=== PATIENT | male | born 1955 | race Caucasian/White ===

== ENCOUNTER 2016-11-04 14:56 | Inpatient (IN) ==
[2016-11-04] MEDS ORDERED: 0.9 % Sodium Chloride 1,000 ML IV SCH (16:15)
--- NOTE | 2016-11-04 16:17 | Emergency Department Note ---
Disposition Clinical Impression: Elevated troponin I level, Community acquired bacterial pneumonia, Renal calculus, left, Hyponatremia, Hyperkalemia Disposition: Admitted As Inpatient Condition: Fair Time of Disposition: 21:21 General Adult HPI - General Chief complaint: ED Fever Stated complaint: Fever/Dark Urine/Back Pain Time Seen by Provider: 11/04/16 15:44 Source: patient Limitations: no limitations Nursing Notes Reviewed: Yes Vital Signs Reviewed: Yes - History of Present Illness HPI Narrative: Mr. Ruiz, is a 61 y M c/o dark urine x 2 wks. Pt states he started having black urine 2weeks ago and was seen by Dr. Rodriguez and placed on antibiotics without a u/a. 1 week into treatment his urine color started to improve but then started getting dark again. Pt states that 3 days ago he started having left flank pain. 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 Pain Scale: 5 - Related Data Home Medications Medication Instructions Recorded Confirmed Albuterol Neb [Proventil Neb] 2.5 mg IH Q4HR 09/09/16 11/04/16 Albuterol Sulfate [Ventolin Hfa] 1 puff IH QID PRN 09/09/16 11/04/16 Baclofen [Baclofen] 20 mg PO TID PRN 09/09/16 11/04/16 CarBAMazepine [Tegretol Xr] 400 mg PO BID 09/09/16 11/04/16 Diazepam [Valium] 10 mg PO TID 09/09/16 11/04/16 Diclofenac Sodium [Voltaren] 1 gm TP TID 09/09/16 11/04/16 Docusate [Colace] 100 mg PO BID 09/09/16 11/04/16 Ipratropium/Albuterol Neb [Duoneb] 3 ml IH TID PRN 09/09/16 11/04/16 Lactose-Reduced Food [Ensure 1 bottle PO TID 09/09/16 11/04/16 Liquid] OxyCODONE/APAP 10/325 [Percocet 1 tab PO Q6HR PRN 09/09/16 11/04/16 10/325 MG] Theophylline Anhydrous [Martin-24] 200 mg PO DAILY 09/09/16 11/04/16 Zonisamide [Zonegran] 200 mg PO BID 09/09/16 11/04/16 Allergies Allergy/AdvReac Type Severity Reaction Status Date / Time No Known Allergies Allergy Unverified 11/04/16 15:06 All systems ED: reviewed and negative except as stated. Constitutional: Reports: fever, chills, weakness ENT ED: Reports: congestion Cardiovascular: Denies: chest pain, palpitations Respiratory: Reports: cough, wheezes Gastrointestinal: Denies: abdominal pain Musculoskeletal: Denies: back pain, neck pain Neurological: Denies: headache Past Medical History - Past Medical History Attestation: Yes The following information was validated with the patient. Source: patient Medical history: Reports: asthma Psychiatric history: Reports: no psych history - Social History Smoking Status: Current every day smoker Smokeless Tobacco Status: No Alcohol use: Reports: heavy Drug use: Reports: marijuana Physical Exam Vital Signs Temperature 98.8 F 11/04/16 15:03 Pulse Rate 97 11/04/16 15:03 Respiratory Rate 16 11/04/16 15:03 Blood Pressure 113/66 11/04/16 15:03 O2 Sat by Pulse Oximetry 96 11/04/16 15:03 Temperature 98.8 F 11/04/16 15:03 Pulse Rate 97 11/04/16 15:03 Respiratory Rate 16 11/04/16 15:03 Blood Pressure 113/66 11/04/16 15:03 O2 Sat by Pulse Oximetry 96 11/04/16 15:03 Oxygen Delivery Oxygen Delivery Room Air -General Appearance: Patient is a 61-year-old male who is alert and oriented 3 and in no acute distress. Patient appears very frail and cachectic - Head Head exam: atraumatic, normocephalic, normal inspection - Eye Eye exam: Present: normal appearance, PERRL, EOMI, negative for scleral icterus negative for conjunctival pallor - ENT ENT exam: normal exam, normal oropharynx, mucous membranes moist - Neck Neck exam: Present: normal inspection, full ROM, trachea midline, negative JVD - Chest Chest inspection: Present: Patient has bilateral equal rise and fall of chest wall. Non-tender to palpation. - Respiratory Respiratory exam: Rhonchi and wheezes auscultated in bilaterally lung collado. Cardiovascular Cardiovascular exam: Present: regular rate, normal rhythm, normal heart sounds, without murmurs rubs or gallops. - Abdominal Exam Abdominal exam: Present: soft, nondistended, Non-Tender light and deep palpation in all quadrants. Bowel sounds normoactive throughout all 4 quadrants. Negative for hyper or hyperresonance. - Extremities Exam Extremities exam: Present: normal inspection, full ROM, pulses equal in bilateral upper and lower extremities. - Back Exam Back exam: Present: normal inspection, full ROM. Absent: tenderness, CVA tenderness (R), CVA tenderness (L), no flank tenderness - Psychiatric Psychiatric exam: Present: normal affect, normal mood - Skin Skin exam: Present: warm, dry, intact, normal color - General Limitations: no limitations General appearance: alert, in no apparent distress Course Course Narrative: pt was seen a and examined. cbc, bmp, lft, - Reevaluation(s) Reevaluation #1: Pt doing well with no complaints. Time: 16:30 Reevaluation #2: Pt returned from ct and is having labs drawn. Time: 16:55 Reevaluation #3: Pt complains that room is cold. waiting for pt to produce urine, but refuses straight cath. Time: 17:30 Additional Reevaluation(s): 1744 Pt still has not urinated. 1819 no urine, refuse straight cath. Patient eating dinner. 1956 pt agrees to straight cath. urine collected and sent. - Consultations Consultation #1: Dr. Metz accepted for admission at 2118hrs Time: 21:19 Vital Signs Temperature 98.8 F 11/04/16 15:03 Pulse Rate 97 11/04/16 15:03 Respiratory Rate 16 11/04/16 15:03 Blood Pressure 113/66 11/04/16 15:03 O2 Sat by Pulse Oximetry 96 11/04/16 15:03 Temperature 0 F L 11/04/16 22:40 Pulse Rate 91 11/04/16 21:37 Respiratory Rate 0 11/04/16 22:40 Blood Pressure 0/0 11/04/16 22:40 O2 Sat by Pulse Oximetry 98 11/04/16 21:37 Oxygen Delivery Oxygen Delivery Room Air Medical Decision Making - MDM Narrative Medical decision making narrative: Mr. Ruiz, is a 61 y M c/o dark urine x 2 wks. Pt states he started having black urine 2weeks ago and was seen by Dr. Rodriguez and placed on antibiotics without a u/a. 1 week into treatment his urine color started to improve but then started getting dark again. Pt states that 3 days ago he started having left flank pain. On exam he has bilateral rhonchi and wheezing of the lungs but no flank pain, or abdominal pain. Pulses are equal bilat. He also has been losing weight and appears cachectic. His presentation is concerning for Nephrolithiasis, complicated UTI, neoplasm, pneumonia, bronchitis. I examined this patient and my medical decision-making was reviewed with the [employer]/PA/Advanced Practice Nurse/Resident Physician. I agree with the documented findings, disposition and treatment plan as described except to the extent set forth below. Patient was seen by Dr. Colbert and myself, please see his evaluation I agree with his management plan I supervised the care of the patient stay. Patient came in today with some flank pain that was on the left side. It has resolved. Said some decubitus ulcers on his buttocks. Which is being treated currently he denies any difficulty urinating now caesuras been very dark in color he denies any other fevers at this point does have some cough. History of alcoholism and CVA in the past. Getting lab workup checking urinalysis and CT of his abdomen and reassess. He is in agreement with this plan. Chest X-Ray 11/04/16 16:05 IMPRESSION: New airspace disease in the left lung base compatible with pneumonia D/ / Rayo Medina MD / Rayo Medina MD Interpreting Provider: Rayo Medina MD Abdomen/Pelvis CT 11/04/16 16:13 IMPRESSION: Masslike consolidation within the left lower lobe with surrounding infiltrates and a loculated pleural effusion. Radiopaque densities within the left lower lobe may reflect calcifications versus aspirates. Mild bladder wall thickening and tiny bladder stone. Nonobstructing left renal calculus. Potential mass within the sigmoid colon versus stool. Cholelithiasis. D/ / Manoj Whiteside MD / Manoj Whiteside MD Interpreting Provider: Manoj Whiteside MD 1930 hrs.: Treating him with antibiotics for presumed pneumonia. Cultures are added will bring him into the hospital. Also elevated troponin with no chest pain. 2049 hrs.: Patient's urine is essentially negative it is dark yellow here his May been due to dehydration is the dark colored ahead at home. With his possible mass is also airspace disease consistent with pneumonia were bring him in the hospital cyanosis positive troponin. He is in agreement with plan. Cultures done patient had aspirin and he had IV antibiotics started. He is in agreement with this plan. Dr. Metz accepted for admission at 2117hrs - Medical Records Medical records reviewed: Yes I reviewed the patient's medical records. - Lab Data Lab results reviewed: Yes I reviewed the patient's lab results. Lab results narrative: Short CBC 11/04/16 Range/Units 16:21 WBC 8.0 (4.3-11.1) K/mcL Hgb 11.7 L (12.9-16.9) g/dL Hct 36.9 L (37.5-50.1) % Plt Count 465 H (140-400) K/mcL Neutrophils # 5.7 (1.6-8.9) K/mcL BMP 11/04/16 Range/Units 16:21 Sodium 135 L (136-145) mEq/L Potassium 4.6 H (3.5-4.5) mEq/L Chloride 99 (98-109) mEq/L Carbon Dioxide 28 (19-29) mEq/L BUN 11 (8-26) mg/dL Creatinine 0.56 L (0.72-1.25) mg/dL Glucose 92 (70-99) mg/dL Calcium 9.0 (8.6-10.8) mg/dL Cardiac Enzymes 11/04/16 Range/Units 16:21 Troponin I 0.09 H* (0-0.03) ng/mL Liver Function 11/04/16 Range/Units 16:21 Total Bilirubin 0.2 (0.2-1.2) mg/dL AST 15 (5-34) Units/L ALT 12 (0-55) Units/L Alkaline Phosphatase 159 H (38-126) Units/L Albumin 2.2 L (3.5-5.0) g/dL Result diagrams: 11/04/16 16:21 11/04/16 16:21 Lab Results 02/05/1311/04/16 11/04/16 Range/Units 16:21 16:21 16:21 WBC 8.0 (4.3-11.1) K/mcL RBC 3.87 L (4.19-5.50) M/mcL Hgb 11.7 L (12.9-16.9) g/dL Hct 36.9 L (37.5-50.1) % MCV 95.3 (83.0-100.0) fL MCH 30.2 (28.0-33.3) pg MCHC 31.7 (31.6-35.5) g/dL RDW 13.7 (11.5-14.5) % Plt Count 465 H (140-400) K/mcL MPV 8.3 L (9.4-12.4) fL Immature Gran % 0.4 (0-4) % Seg Neutrophils % 70.2 % Lymphocytes % 18.3 % Monocytes % 8.5 % Eosinophils % 2.0 % Basophils % 0.6 % Neutrophils # 5.7 (1.6-8.9) K/mcL Lymphocytes # 1.5 (0.6-4.6) K/mcL Monocytes # 0.7 (0.0-1.3) K/mcL Eosinophils # 0.2 (0.0-0.6) K/mcL Basophils # 0.1 (0.0-0.2) K/mcL Sodium 135 L (136-145) mEq/L Potassium 4.6 H (3.5-4.5) mEq/L Chloride 99 (98-109) mEq/L Carbon Dioxide 28 (19-29) mEq/L BUN 11 (8-26) mg/dL Creatinine 0.56 L (0.72-1.25) mg/dL Est GFR ( Amer) > 60 (> 60) Est GFR (Non-Af Amer) > 60 (> 60) BUN/Creatinine Ratio 20 (6-26) Glucose 92 (70-99) mg/dL Calculated Osmolality 279 L (280-300) Calcium 9.0 (8.6-10.8) mg/dL Total Bilirubin 0.2 (0.2-1.2) mg/dL AST 15 (5-34) Units/L ALT 12 (0-55) Units/L Alkaline Phosphatase 159 H (38-126) Units/L Creatine Kinase (30-200) Units/L Troponin I 0.09 H* (0-0.03) ng/mL Serum Total Protein 6.9 (6.0-8.3) g/dL Albumin 2.2 L (3.5-5.0) g/dL Globulin 4.7 H (2.4-3.5) g/dL Albumin/Globulin Ratio 0.5 L (1.1-2.2) Urine Color (Yellow) Urine Clarity (Clear) Urine pH (5.0-8.0) pH Units Ur Specific [place] (1.010-1.025) Urine Protein (Neg-Trace) mg/dL Urine Glucose (UA) (Normal) mg/dL Urine Ketones (Negative) mg/dL Urine Blood (Negative) Urine Nitrite (Negative) Urine Bilirubin (Negative) Urine Urobilinogen (Normal) mg/dL Ur Leukocyte Esterase (Negative) Urine Microscopic RBC (0-3) per hpf Urine Microscopic WBC (0-3) per hpf Ur Squamous Epith Cells (None-Few) per lpf Urine Bacteria (None-Few) per hpf Hyaline Casts (None-Few) per lpf 11/04/16 11/04/16 Range/Units 16:21 20:33 WBC (4.3-11.1) K/mcL RBC (4.19-5.50) M/mcL Hgb (12.9-16.9) g/dL Hct (37.5-50.1) % MCV (83.0-100.0) fL MCH (28.0-33.3) pg MCHC (31.6-35.5) g/dL RDW (11.5-14.5) % Plt Count (140-400) K/mcL MPV (9.4-12.4) fL Immature Gran % (0-4) % Seg Neutrophils % % Lymphocytes % % Monocytes % % Eosinophils % % Basophils % % Neutrophils # (1.6-8.9) K/mcL Lymphocytes # (0.6-4.6) K/mcL Monocytes # (0.0-1.3) K/mcL Eosinophils # (0.0-0.6) K/mcL Basophils # (0.0-0.2) K/mcL Sodium (136-145) mEq/L Potassium (3.5-4.5) mEq/L Chloride (98-109) mEq/L Carbon Dioxide (19-29) mEq/L BUN (8-26) mg/dL Creatinine (0.72-1.25) mg/dL Est GFR ( Amer) (> 60) Est GFR (Non-Af Amer) (> 60) BUN/Creatinine Ratio (6-26) Glucose (70-99) mg/dL Calculated Osmolality (280-300) Calcium (8.6-10.8) mg/dL Total Bilirubin (0.2-1.2) mg/dL AST (5-34) Units/L ALT (0-55) Units/L Alkaline Phosphatase (38-126) Units/L Creatine Kinase 16 L (30-200) Units/L Troponin I (0-0.03) ng/mL Serum Total Protein (6.0-8.3) g/dL Albumin (3.5-5.0) g/dL Globulin (2.4-3.5) g/dL Albumin/Globulin Ratio (1.1-2.2) Urine Color Dark Yellow (Yellow) Urine Clarity Clear (Clear) Urine pH 6.5 (5.0-8.0) pH Units Ur Specific [place] 1.024 (1.010-1.025) Urine Protein Trace (Neg-Trace) mg/dL Urine Glucose (UA) Normal (Normal) mg/dL Urine Ketones Negative (Negative) mg/dL Urine Blood Negative (Negative) Urine Nitrite Negative (Negative) Urine Bilirubin Small H (Negative) Urine Urobilinogen Normal (Normal) mg/dL Ur Leukocyte Esterase Negative (Negative) Urine Microscopic RBC 0-3 (0-3) per hpf Urine Microscopic WBC 0-3 (0-3) per hpf Ur Squamous Epith Cells Moderate H (None-Few) per lpf Urine Bacteria None Seen (None-Few) per hpf Hyaline Casts None Seen (None-Few) per lpf - Radiology Data Radiology results reviewed: Yes I reviewed the patient's radiology results. Chest X-Ray 11/04/16 16:05 IMPRESSION: New airspace disease in the left lung base compatible with pneumonia D/ / Rayo Medina MD / Rayo Medina MD Interpreting Provider: Rayo Medina MD Abdomen/Pelvis CT 11/04/16 16:13 IMPRESSION: Masslike consolidation within the left lower lobe with surrounding infiltrates and a loculated pleural effusion. Radiopaque densities within the left lower lobe may reflect calcifications versus aspirates. Mild bladder wall thickening and tiny bladder stone. Nonobstructing left renal calculus. Potential mass within the sigmoid colon versus stool. Cholelithiasis. D/ / Manoj Whiteside MD / Manoj Whiteside MD Interpreting Provider: Manoj Whiteside MD - EKG Data EKG #1 EKG attestation: Yes I reviewed and interpreted this EKG. EKG results narrative: EKG taken 11/04/2016 at 1724 hrs. shows a sinus rhythm with ventricular rate of 80 bpm underlying artifact baseline with no signs of ischemia and he leads P T waves in V2 and V3 which are shown previous EKG taken 09/09/2016 which almost looks identical in morphology
[2016-11-04 16:44] LABS: Basophils # 0.1 K/mcL (0.0-0.2); Basophils % 0.6 %; Eosinophils # 0.2 K/mcL (0.0-0.6); Hematocrit 36.9 % (37.5-50.1); Hemoglobin 11.7 g/dL (12.9-16.9); Immature Granulocytes % 0.4 % (0-4); Lymphocytes # 1.5 K/mcL (0.6-4.6); Lymphocytes % 18.3 %; Mean Corpuscular HGB Conc 31.7 g/dL (31.6-35.5); Mean Corpuscular Hemoglobin 30.2 pg (28.0-33.3); Mean Corpuscular Volume 95.3 fL (83.0-100.0); Mean Platelet Volume 8.3 fL (9.4-12.4); Monocytes # 0.7 K/mcL (0.0-1.3); Monocytes % 8.5 %; Neutrophils # 5.7 K/mcL (1.6-8.9); Platelet Count 465 K/mcL (140-400); Red Blood Count 3.87 M/mcL (4.19-5.50); Red Cell Distribution Width 13.7 % (11.5-14.5); Segmented Neutrophils % 70.2 %
[2016-11-04 16:54] LABS: Alanine Aminotransferase 12 Units/L (0-55); Albumin 2.2 g/dL (3.5-5.0); Albumin/Globulin Ratio 0.5 (1.1-2.2); Alkaline Phosphatase 159 Units/L (38-126); Aspartate Amino Transferase 15 Units/L (5-34); BUN/Creatinine Ratio 20 (6-26); Bilirubin,Total 0.2 mg/dL (0.2-1.2); Blood Urea Nitrogen 11 mg/dL (8-26); Carbon Dioxide 28 mEq/L (19-29); Chloride 99 mEq/L (98-109); Globulin 4.7 g/dL (2.4-3.5); Glucose 92 mg/dL (70-99); Osmolality,Calculated 279 (280-300); Potassium 4.6 mEq/L (3.5-4.5); Sodium 135 mEq/L (136-145); Total Protein 6.9 g/dL (6.0-8.3); eGFR For African Americans > 60 (> 60); eGFR For Non-African Americans > 60 (> 60)
[2016-11-04] MEDS ORDERED: Aspirin 81 MG TAB.CHEW PO ONE (18:19)
[2016-11-04] MEDS ORDERED: Levofloxacin 750 MG/150 ML 750 MG/150 ML BAG IVPB ONE (19:26)
[2016-11-04 20:44] LABS: Bilirubin,Urine Small (Negative); Blood,Urine Negative (Negative); Clarity,Urine Clear (Clear); Color,Urine Dark Yellow (Yellow); Glucose,Urine (UA) Normal (Normal); Ketones,Urine Negative (Negative); Leukocyte Esterase,Urine Negative (Negative); Nitrite,Urine Negative (Negative); PH,Urine 6.5 pH Units (5.0-8.0); Protein,Urine Trace mg/dL (Neg-Trace); Specific Gravity,Urine 1.024 (1.010-1.025); Urobilinogen,Urine Normal (Normal)
[2016-11-04 20:47] LABS: Bacteria,Urine None Seen per hpf (None-Few); Hyaline Casts,Urine None Seen per lpf (None-Few); RBC,Urine 0-3 per hpf (0-3); Squamous Epithelial Cell,Urine Moderate per lpf (None-Few); WBC,Urine 0-3 per hpf (0-3)
[2016-11-04] MEDS ORDERED: 0.9 % Sodium Chloride 1,000 ML IVC ONE (22:47)
--- NOTE | 2016-11-04 22:52 | Internal Med History&Physical ---
Date of Encounter: 11/04/16 Time of Encounter: 22:48 Assessment and Plan (1) Colonic mass Current visit: Yes Status: Acute Patient never had a colonoscopy advised him that he will need a colonoscopy shortly after discharge to rule out possible deal malignancy. Will check CEA level (2) Community acquired bacterial pneumonia Current visit: Yes Status: Acute Levaquin sputum and blood cultures. Patient will need to repeat imaging (lungs when sure resolution of this infiltrates resistance of mass will need to be investigated for malignancy. He is a lifelong smoker with history of weight loss and declining appetites and functional decline (3) Elevated troponin I level Current visit: Yes Status: Acute He denies any active chest pain. His electrocardiogram shows no ST segment shifts. Will trend troponin. Start the patient on aspirin. Cardiology consultation. Will also check echocardiogram and thyroid profile (4) Renal calculus, left Current visit: Yes Status: Acute This was likely to cause the left flank pain. His document is probably related to dehydration. There is no blood in the urine. Also no evidence of rhabdomyolysis. No obstructive uropathy. Urine is non infected (5) Stroke Current visit: Yes Status: Acute History of stroke with residual left-sided weakness. No new focal deficit Qualifiers: Qualified Code(s): I63.9 - Cerebral infarction, unspecified Internal Medicine - H&P: HPI Chief complaint: dark urine and left flank pain History of present illness: Mr. Ruiz is a 61 year old male with history of left sided any pleasing ambulates with a cane, history of asthma since childhood was a lifelong smoker presents to the emergency room today with the main complain of dark urine and left flank pain. The past week patient has been noticing dark color overlays urine and pain in his left flank. His appetite has been declining and he has not been eating and drinking well past few weeks. He has seen his primary care physician and was started on an antibiotic for presumed urinary tract infection which he does not recall the name of for the past 4 days. It continues to get progressively weak lethargic with poor appetite and therefore his home care nurse advised to the hospital. Patient has been losing weight. He thinks over the past 2 to 3 months he may have lost about 25 to 30 pounds. He is also getting weaker and his functional capacities declining. He denies any increase in cough or sputum production compared to his baseline. He denies any fevers chills. Denies any change in the color of his stools or eye. He denies any chest pain. Has been a lifelong smoker about 50 pack year does not have an appetite is currently. Occasional alcohol. Father of cancer he does not know where origin is Past Med Surg Social Fam HX - Past Medical History Medical history: asthma Psychiatric history: no psych history - Social History Smoking Status: Current every day smoker Smokeless Tobacco Status: No Alcohol use: heavy Drug use: marijuana Internal Medicine - H&P: Meds Albuterol Neb [Proventil Neb] 2.5 mg IH Q4HR 09/09/16 [History] Albuterol Sulfate [Ventolin Hfa] 1 puff IH QID PRN 09/09/16 [History] Baclofen [Baclofen] 20 mg PO TID PRN 09/09/16 [History] CarBAMazepine [Tegretol Xr] 400 mg PO BID 09/09/16 [History] Diazepam [Valium] 10 mg PO TID 09/09/16 [History] Diclofenac Sodium [Voltaren] 1 gm TP TID 09/09/16 [History] Docusate [Colace] 100 mg PO BID 09/09/16 [History] Ipratropium/Albuterol Neb [Duoneb] 3 ml IH TID PRN 09/09/16 [History] Lactose-Reduced Food [Ensure Liquid] 1 bottle PO TID 09/09/16 [History] OxyCODONE/APAP 10/325 [Percocet 10/325 MG] 1 tab PO Q6HR PRN 09/09/16 [History] Theophylline Anhydrous [Martin-24] 200 mg PO DAILY 09/09/16 [History] Zonisamide [Zonegran] 200 mg PO BID 09/09/16 [History] Allergies No Known Allergies Allergy (Unverified 11/04/16 15:06) All Systems PM: A 10-system review of systems was performed and is negative for pertinent findings except as documented above in the HPI. Review of systems: 10 point review of systems is negative except for HPI - Constitutional Vitals: Temp Pulse Resp BP Pulse Ox 98.8 F 91 16 108/73 98 11/04/16 15:03 11/04/16 21:37 11/04/16 21:37 11/04/16 21:37 11/04/16 21:37 Exam: Gen.: patient is alert oriented times 3 kn of distress. slightly cachectic cardiac: normal S1 S2 no additional sounds or murmurs chest: diminished air entry in the left base abdomen: soft nontender nondistended normal bowel sounds lower extremity: Lax calf muscles no swelling Internal Med - H&P Results - Labs CBC & Chem 7: 11/04/16 16:21 11/04/16 16:21
[2016-11-05] MEDS: Albuterol 2.5 MG/3 ML NEBULIZER IH SCH ×4 (00:51→11:47)
[2016-11-05] MEDS: 0.9 % Sodium Chloride 1,000 ML IVC SCH ×2 (03:00→14:56)
[2016-11-05] MEDS: *HR* OxyCODONE/APAP 10/325 TABLET PO PRN ×3 (03:17→18:44)
[2016-11-05 06:23] LABS: Basophils % 0.3 %; Eosinophils # 0.1 K/mcL (0.0-0.6); Eosinophils % 1.2 %; Hematocrit 33.3 % (37.5-50.1); Hemoglobin 10.6 g/dL (12.9-16.9); Immature Granulocytes % 0.3 % (0-4); Lymphocytes # 1.5 K/mcL (0.6-4.6); Lymphocytes % 25.2 %; Mean Corpuscular HGB Conc 31.8 g/dL (31.6-35.5); Mean Corpuscular Hemoglobin 30.2 pg (28.0-33.3); Mean Corpuscular Volume 94.9 fL (83.0-100.0); Mean Platelet Volume 8.3 fL (9.4-12.4); Monocytes # 0.5 K/mcL (0.0-1.3); Monocytes % 7.6 %; Neutrophils # 3.9 K/mcL (1.6-8.9); Platelet Count 390 K/mcL (140-400); Red Blood Count 3.51 M/mcL (4.19-5.50); Red Cell Distribution Width 13.7 % (11.5-14.5); Segmented Neutrophils % 65.4 %
[2016-11-05 06:45] LABS: BUN/Creatinine Ratio 18 (6-26); Blood Urea Nitrogen 9 mg/dL (8-26); Calcium 8.2 mg/dL (8.6-10.8); Carbon Dioxide 23 mEq/L (19-29); Chloride 100 mEq/L (98-109); Creatine Kinase 12 Units/L (30-200); Glucose 99 mg/dL (70-99); Magnesium 1.3 mg/dL (1.6-2.6); Osmolality,Calculated 273 (280-300); Sodium 132 mEq/L (136-145); eGFR For African Americans > 60 (> 60); eGFR For Non-African Americans > 60 (> 60)
[2016-11-05 06:56] LABS: Thyroid Stimulating Hormone 1.815 mcIU/mL (0.350-4.840)
[2016-11-05 06:58] LABS: C-Reactive Protein 44 mg/L (Less than 5)
[2016-11-05 07:20] LABS: Carcinoembryonic Antigen 2.8 ng/mL (0-5.0)
--- NOTE | 2016-11-05 08:39 | Cardiology Consult Note ---
Date of Encounter: 11/05/16 Time of Encounter: 08:15 Assessment and Plan (1) Elevated troponin I level Current Visit: Yes Status: Acute Per cardiology: -Elevated troponin of 0.08, 0.09 in the setting of pneumonia and recent UTI. Patient denies chest pain, increased shortness of breath, or edema. -Patient with a history of CVA with left sided hemiparesis. Patient with new diagnosis of colon mass and recent weight loss of 30 pounds. Patient is apparently going to be worked up for further malignant testing on colon mass. -Patient currently on asa and statin. Patient currently receiving antibiotics and nebulizer treatments for pneumonia and UTI. -Magnesium 1.3 -ECG personally reviewed and noted to be normal sinus rhythm with heart rate of 73 beats/minute. -No further ischemic work up warranted at this time as mildly elevated troponin is likely due to demand ischemia. -Will add lopressor 12.5mg PO BID. Will decrease aspirin to 81mg PO daily. -Magnesium replacement per primary service. -Recommend medical management. -Cardiology will sign off. Re-consult if needed. Thank you. Discussion w patient/family: The assessment and plan as outlined above was discussed with the patient who expressed understanding and agreement. All questions were answered. Thank you for involving us in the care of your patient. Please call with any questions. Discussed and reviewed with Dr.John Blackwood. History of Present Illness Consult date: 11/05/16 Requesting physician: Nigel Nguyen Consult reason: elevated troponin Chief complaint: chills, dark urine History of present illness: Mr. Ruiz is a 61 year old male who presented to [place] with complaints of fever, chills, and dark urine. Patient states he was on antibiotics recently for a UTI that was prescribed by his PCP. Patient states he urine before antibiotics was dark and then became better on antibiotics. Patient states as soon as first round of antibiotics was finished, dark urine returned. Patient states urine is "black" in color. Patient complains of fever, chills, diarrhea, increased fatigue, weight loss, and increased weakness. Patient denies chest pain, increased shortness of breath, or edema. Past Med Surg Social Fam HX - Past Medical History Medical history: asthma, CVA, seizures Psychiatric history: no psych history - Social History Smoking Status: Current every day smoker Smokeless Tobacco Status: No Alcohol use: heavy Drug use: marijuana - Family History Father Living Status: Cause of : Cancer Hx Family Cardiac Disorders: No Hx Family Respiratory Disorders: Yes Hx Family Cancer: Yes Hx Family GI Disorders: No Hx Family Genitourinary Disorders: No Hx Family Endocrine Disorder: No Hx Family Neuromuscular Disorders: No Hx Family Neurologic Disorders: No Hx Family HEENT Disorders: No Hx Family Autoimmune Disorders: No Hx Family Reproductive Disorders: No Hx Family Psychosocial Disorders: No Hx Family Medical Disorders: Yes Medications and Allergies Albuterol Neb [Proventil Neb] 2.5 mg IH Q4HR 09/09/16 [History] Albuterol Sulfate [Ventolin Hfa] 1 puff IH QID PRN 09/09/16 [History] Baclofen [Baclofen] 20 mg PO TID PRN 09/09/16 [History] CarBAMazepine [Tegretol Xr] 400 mg PO BID 09/09/16 [History] Diazepam [Valium] 10 mg PO TID 09/09/16 [History] Diclofenac Sodium [Voltaren] 1 gm TP TID 09/09/16 [History] Docusate [Colace] 100 mg PO BID 09/09/16 [History] Ipratropium/Albuterol Neb [Duoneb] 3 ml IH TID PRN 09/09/16 [History] Lactose-Reduced Food [Ensure Liquid] 1 bottle PO TID 09/09/16 [History] OxyCODONE/APAP 10/325 [Percocet 10/325 MG] 1 tab PO Q6HR PRN 09/09/16 [History] Theophylline Anhydrous [Martin-24] 200 mg PO DAILY 09/09/16 [History] Zonisamide [Zonegran] 200 mg PO BID 09/09/16 [History] Allergies No Known Allergies Allergy (Unverified 11/04/16 15:06) All Systems Review: A 10-system review of systems was performed and is negative for pertinent findings except as documented above in the HPI. - Constitutional Constitutional: chills, fatigue, fever(s), weakness, weight loss - Gastrointestinal Gastrointestinal: diarrhea - Genitourinary Genitourinary: other (discolored urine) - Musculoskeletal Musculoskeletal: abnormal gait (wheelchair bound at home) Physical Examination Vital Signs, Last 4 Hours Temp Pulse Resp BP Pulse Ox 11/05/16 07:40 14 99 11/05/16 07:30 98.8 F 80 16 116/64 97 General: Conversant, No Apparent Distress HEENT: Atraumatic, Normocephaly, Mucus Membranes Moist Cardiac: Reg Rate and Rhythm, Normal S1 and S2 Lungs: Other (lung sounds diminished throughout. ) Neuro: Alert and responsive Abdomen: Other (cachexic ) Skin: No rashes noted on visualized skin Musculoskeletal: No Chest Wall Tenderness Extremities: No Clubbing, No Cyanosis, No Edema, Normal Pulses Results 11/05/16 05:58 11/05/16 05:58 Lab Results 11/05/16 11/05/16 11/05/16 05:58 05:58 05:58 WBC 5.9 Hgb 10.6 L Hct 33.3 L Plt Count 390 Sodium 132 L Potassium 4.0 Chloride 100 Carbon Dioxide 23 BUN 9 Creatinine 0.50 L Glucose 99 Calcium 8.2 L Magnesium 1.3 L Troponin I 0.08 H* TSH 1.815 - Imaging and Cardiology Chest Xray: report reviewed Other Results: Abdominal CT reviewed - EKG Interpretation EKG results cardiology: personally reviewed, normal ECG, sinus rhythm ( Telemetry reviewed with average heart rate 83, sinus rhythm. Minimal heart rate 68. Occasional PACs noted.) Consult Discharge Plan - Plan Referrals: Jose Rodriguez MD [Primary Care Provider] - 11/11/16 9:45 am (Web request.....)
[2016-11-05] MEDS ORDERED: Magnesium Sulfate 2 GM in D5% in Water 100 ML IVPB ONE (09:00)
[2016-11-05] MEDS ORDERED: Aspirin Enteric Coated 325 MG Tablet PO SCH (09:00)
[2016-11-05] MEDS: CarBAMazepine XR (12 hr) 100 MG TAB PO SCH ×2 (09:43→20:30)
[2016-11-05] MEDS: *HR* Heparin 5,000 UNIT/ML VIAL SQ SCH ×2 (12:24→18:32)
[2016-11-05] MEDS: Baclofen 10 MG TABLET PO PRN ×2 (14:56→18:44)
--- NOTE | 2016-11-05 17:58 | Internal Med Progress Note ---
Date of Encounter: 11/05/16 Time of Encounter: 17:54 - Assessment and plan (1) Colonic mass Current Visit: Yes Status: Acute Assessment and plan: Abdominal CT shows colonic mass versus stool. He does not complain of constipation at this time and no abdominal pain. He reports that he never has had colonoscopy in the past, does give h/o anorexia and weight loss. Denies any blood in the stool or melena. We will send for stool occult, will need GI consult for possible colonoscopy to evaluate for malignancy. CEA is negative. (2) Community acquired bacterial pneumonia Current Visit: Yes Status: Acute Assessment and plan: CT chest shows spiculated opacity, mass vs pneumonia along with loculated pleural effusion. will conitnue with levofloxacin for now, IR guided thoracentesis and pleural fluid analysis. he has no fever or leucocytosis. will need repeat scan to confirm resolution, if not may need further workup for malignancy. he says he smoked in the past and has quit. (3) Elevated troponin I level Current Visit: Yes Status: Acute Assessment and plan: Most likely demand ischemia in the setting of possible pneumonia and recent UTI, not a candidate for invasive evaluation as per cardio. He denies any chest pain at this time. Beta josie was added by cardiology and has signed off. (4) Renal calculus, left Current Visit: Yes Status: Acute Assessment and plan: non obstructive stone and no signs of UTI. no further intervention at this time. - Time Spent With Patient 25 - 35 minutes - Subjective Interval history: Patient seen at the bedside, first encounter. Complains of generalized weakness, reports anorexia and weight loss which is chronic. Has had diarrhea before which has not resolved. Denies any fever or cough or shortness of breath at home. Gives family history of father having possible lung cancer with metastases. - Constitutional Vitals: Temp Pulse Resp BP Pulse Ox 98.2 F 65 17 91/51 97 11/05/16 16:27 11/05/16 16:27 11/05/16 16:27 11/05/16 16:27 11/05/16 16:27 General appearance: Present: cachectic, A&O X 3, pleasant, no acute distress Exam: General: Conversant, No Apparent Distress HEENT: Atraumatic, Normocephaly, Mucus Membranes Moist Cardiac: Reg Rate and Rhythm, Normal S1 and S2 Lungs: Other (lung sounds diminished throughout. ) Neuro: Alert and responsive Abdomen: soft, non tender, no organomegaly, bs are present Skin: No rashes noted on visualized skin Musculoskeletal: No Chest Wall Tenderness Extremities: No Clubbing, No Cyanosis, No Edema, Normal Pulses Internal Medicine: Result - Labs CBC & Chem 7: 11/05/16 05:58 11/05/16 05:58 Labs: Short CBC 11/05/16 Range/Units 05:58 WBC 5.9 (4.3-11.1) K/mcL Hgb 10.6 L (12.9-16.9) g/dL Hct 33.3 L (37.5-50.1) % Plt Count 390 (140-400) K/mcL Neutrophils # 3.9 (1.6-8.9) K/mcL BMP 11/05/16 05:58 Sodium 132 L Potassium 4.0 Chloride 100 Carbon Dioxide 23 BUN 9 Creatinine 0.50 L Glucose 99 Calcium 8.2 L Cardiac Enzymes 11/05/16 Range/Units 05:58 Troponin I 0.08 H* (0-0.03) ng/mL - Impressions Impressions Chest CT 11/05/16 13:30 IMPRESSION: Spiculated mass-like opacities to the left lower lobe, correlating with findings on recent CT abdomen and pelvis and chest x-ray. Findings appear to be new since prior chest x-rays 09/09/2016 and given rapidity of development may reflect infectious/inflammatory process, but neoplastic process cannot entirely be excluded and continued close follow-up is recommended to document resolution after appropriate treatment. There is also a loculated left pleural effusion with somewhat thickened rim concerning for empyema. Atherosclerosis to include coronary artery disease. Mild emphysema. D/ / 11/05/2016 14:55:27 Mykel Weeks MD / [email or web address] Interpreting Provider: Mykel Weeks MD Consult Discharge Plan - Plan Referrals: Jose Rodriguez MD [Primary Care Provider] - 11/11/16 9:45 am (Web request.....)
[2016-11-05] MEDS: Levofloxacin 750 MG/150 ML 750 MG/150 ML BAG IVPB SCH (20:40)
[2016-11-05] MEDS ORDERED: Polyethylene Glycol 3350 255 GM POWDER PO ONE (20:49)
[2016-11-06] MEDS: 0.9 % Sodium Chloride 1,000 ML IVC SCH ×3 (03:35→18:57)
[2016-11-06 06:41] LABS: Basophils % 0.5 %; Eosinophils # 0.2 K/mcL (0.0-0.6); Eosinophils % 2.4 %; Hematocrit 35.1 % (37.5-50.1); Hemoglobin 11.1 g/dL (12.9-16.9); Immature Granulocytes % 0.4 % (0-4); Lymphocytes # 1.8 K/mcL (0.6-4.6); Lymphocytes % 21.9 %; Mean Corpuscular HGB Conc 31.6 g/dL (31.6-35.5); Mean Corpuscular Hemoglobin 30.7 pg (28.0-33.3); Mean Platelet Volume 8.3 fL (9.4-12.4); Monocytes # 0.7 K/mcL (0.0-1.3); Monocytes % 9.1 %; Neutrophils # 5.4 K/mcL (1.6-8.9); Platelet Count 405 K/mcL (140-400); Red Blood Count 3.62 M/mcL (4.19-5.50); Red Cell Distribution Width 13.8 % (11.5-14.5); Segmented Neutrophils % 65.7 %
[2016-11-06 06:56] LABS: BUN/Creatinine Ratio 10 (6-26); Carbon Dioxide 22 mEq/L (19-29); Chloride 104 mEq/L (98-109); Sodium 134 mEq/L (136-145); eGFR For African Americans > 60 (> 60)
[2016-11-06 06:57] LABS: Alanine Aminotransferase 12 Units/L (0-55); Albumin 1.9 g/dL (3.5-5.0); Albumin/Globulin Ratio 0.4 (1.1-2.2); Alkaline Phosphatase 139 Units/L (38-126); Aspartate Amino Transferase 15 Units/L (5-34); Bilirubin,Direct 0.1 mg/dL (0.0-0.5); Bilirubin,Indirect 0.1 mg/dL (0.0-1.2); Bilirubin,Total 0.2 mg/dL (0.2-1.2); Blood Urea Nitrogen 5 mg/dL (8-26); Calcium 8.5 mg/dL (8.6-10.8); Globulin 4.3 g/dL (2.4-3.5); Glucose 92 mg/dL (70-99); Lactate Dehydrogenase 151 Units/L (159-327); Osmolality,Calculated 275 (280-300); Total Protein 6.2 g/dL (6.0-8.3); eGFR For Non-African Americans > 60 (> 60)
--- NOTE | 2016-11-06 08:11 | Gastroenterology Consult Note ---
<Aida Casey - Last Filed: 11/06/16 11:25> Date of Encounter: 11/06/16 Time of Encounter: 10:30 - Assessment and plan (1) Anemia Current Visit: Yes Status: Acute Assessment and plan: Colon to assess abnormal CT findings in the sigmoid colon. If negative for neoplasm or bleeding, EGD likely at [facility] to complete anemia w/u. Qualifiers: Anemia type: unspecified type Qualified Code(s): D64.9 - Anemia, unspecified (2) Unintentional weight loss Current Visit: Yes Status: Acute Assessment and plan: Colon today. IR thoracentesis today for abnormal lung findings to r/o neoplasm. Recommend dietary supplement, transfer station attendant consult. (3) Colonic mass Current Visit: Yes Status: Acute Assessment and plan: Colonoscopy today. - Time Spent With Patient Total time spent is greater than 50% in coordination of care (as documented) at patient's floor/unit and/or counseling patient: less than 15 minutes GI History of Present Illness - Data of Consult Patient: new to practice Consult date: 11/06/16 Requesting Physician: Moses Jefferson - Consult Narrative Reason for consult: Abn CT scan r/o malignancy, unintentional wgt loss, anorexia History of present illness: Mr. Ruiz is a 61 year old male with PMH of CVA with residual left-sided weakness, asthma. He presented to ED yesterday with complaint of dark (black) urine and L-sided flank pain. Recent hx of UTI which was treated with antibiotics by PCP. His appetite has been declining and he has not been eating and drinking well past few weeks. It continues to get progressively weak lethargic with poor appetite and therefore his home care nurse advised to the hospital. Patient has been losing weight. He thinks over the past 2 to 3 months he may have lost about 25 to 30 pounds. He is also getting weaker and his functional capacities declining. He denies any increase in cough or sputum production compared to his baseline. He denies any fevers or chills. CT imaging revealed abnormalities in the lung and sigmoid colon suspicious for possible neoplasm. Troponins were elevated at admission, cardiology was consulted and recommended medical management at this time. Patient denies consistent diarrhea at home prior to admission. He admits he is a daily drinker of etoh, 'all day long' and smokes tobacco. Colonoscopy: None EGD: None Past Med Surg Social Fam HX - Past Medical History Medical history: asthma, CVA, seizures Psychiatric history: no psych history - Social History Smoking Status: Current every day smoker Smokeless Tobacco Status: No Alcohol use: heavy Drug use: marijuana - Family History Father Living Status: Cause of : Cancer Hx Family Cardiac Disorders: No Hx Family Respiratory Disorders: Yes Hx Family Cancer: Yes Hx Family GI Disorders: No Hx Family Genitourinary Disorders: No Hx Family Endocrine Disorder: No Hx Family Neuromuscular Disorders: No Hx Family Neurologic Disorders: No Hx Family HEENT Disorders: No Hx Family Autoimmune Disorders: No Hx Family Reproductive Disorders: No Hx Family Psychosocial Disorders: No Hx Family Medical Disorders: Yes - Gastrointestinal NSAID use: None Anticoagulation Use: None Number of BM Per Day: 1 Gastrointestinal: Present: other Additional Comments: anorexia, unintentional weight loss - Constitutional Constitutional: anorexia, fatigue, weight loss - EENT Eyes: as per HPI Ears: Present: as per HPI Nose, mouth and throat: Present: as per HPI - Cardiovascular Cardiovascular ROS: Present: as per HPI - Respiratory Respiratory IM: Present: wheezing - Neurological ROS Neurological GI: Present: weakness - Hematologic/Lymphatic Hematologic/Lymphatic pediatric: Present: as per HPI - Musculoskeletal Musculoskeletal ROS GI: Present: as per HPI - Integumentary Integumentary GI: Present: as per HPI - Psychiatric ROS Psychiatric GI: Present: as per HPI - Endocrine Endocrine IM: Present: fatigue - Constitutional Vitals: Temp Pulse Resp BP Pulse Ox 98.1 F 70 16 111/65 97 11/06/16 07:31 11/06/16 07:31 11/06/16 07:31 11/06/16 07:31 11/06/16 07:31 General appearance: Present: cachectic, disheveled, A&O X 3, answers questions appropriately - Head Head exam: Present: normal inspection - Eye Eye exam: Present: normal appearance, sclera anicteric - ENT ENT exam: Present: mucous membranes moist - Neck Neck exam general surgery: Present: normal inspection, trachea midline - Respiratory Respiratory exam: Present: decreased breath sounds, wheezes - Cardiovascular Cardiovascular exam: Present: RRR, +S1, +S2 - GI/Abdominal GI/Abdominal exam: Present: normal bowel sounds, soft, no peritoneal signs - Rectal Rectal exam: Present: deferred - Extremities Exam Extremities exam: Present: warm - Neurological Exam Neurological exam: Present: altered - Psychiatric Psychiatric exam: Present: flat affect - Skin Skin exam: Present: pallor Results - Labs CBC & Chem 7: 11/06/16 06:29 11/06/16 06:29 Labs: Last Result ESR 112 mm/hr (0-10) H 11/05/16 05:58 Calcium 8.5 mg/dL (8.6-10.8) L 11/06/16 06:29 Troponin I 0.08 ng/mL (0-0.03) H* 11/05/16 05:58 C-Reactive Protein 44 mg/L (Less than 5) H 11/05/16 05:58 Entire Visit Hgb 11.1 g/dL (12.9-16.9) L 11/06/16 06:29 Hct 35.1 % (37.5-50.1) L 11/06/16 06:29 Total Bilirubin 0.2 mg/dL (0.2-1.2) 11/06/16 06:29 AST 15 Units/L (5-34) 11/06/16 06:29 ALT 12 Units/L (0-55) 11/06/16 06:29 Carcinoembryonic Ag 2.8 ng/mL (0-5.0) 11/05/16 05:58 - Impressions Impressions Chest CT 11/05/16 13:30 IMPRESSION: Spiculated mass-like opacities to the left lower lobe, correlating with findings on recent CT abdomen and pelvis and chest x-ray. Findings appear to be new since prior chest x-rays 09/09/2016 and given rapidity of development may reflect infectious/inflammatory process, but neoplastic process cannot entirely be excluded and continued close follow-up is recommended to document resolution after appropriate treatment. There is also a loculated left pleural effusion with somewhat thickened rim concerning for empyema. Atherosclerosis to include coronary artery disease. Mild emphysema. D/ / 11/05/2016 14:55:27 Mykel Weeks MD / lulu Interpreting Provider: Mykel Weeks MD Consult Discharge Plan - Plan Referrals: Jose Rodriguez MD [Primary Care Provider] - 11/11/16 9:45 am (Web request.....) <Gurvinder Soria - Last Filed: 11/06/16 13:54> Time of Encounter: 11:50 - Time Spent With Patient Total time spent is greater than 50% in coordination of care (as documented) at patient's floor/unit and/or counseling patient: GI History of Present Illness - Data of Consult Requesting Physician: Moses Jefferson - Consult Narrative History of present illness: Mr. Ruiz is a 61 year old male - Constitutional Vitals: Temp Pulse Resp BP Pulse Ox 98.1 F 73 16 105/65 98 11/06/16 07:31 11/06/16 13:46 11/06/16 13:46 11/06/16 13:46 11/06/16 13:46 Results - Labs CBC & Chem 7: 11/06/16 06:29 11/06/16 06:29 Labs: Last Result ESR 112 mm/hr (0-10) H 11/05/16 05:58 Calcium 8.5 mg/dL (8.6-10.8) L 11/06/16 06:29 Iron 60 mcg/dL (65-175) L 11/06/16 06:37 % Saturation 36 % (20-55) 11/06/16 06:37 Transferrin 120 mg/dL (174-364) L 11/06/16 06:37 Troponin I 0.08 ng/mL (0-0.03) H* 11/05/16 05:58 C-Reactive Protein 44 mg/L (Less than 5) H 11/05/16 05:58 Entire Visit Hgb 11.1 g/dL (12.9-16.9) L 11/06/16 06:29 Hct 35.1 % (37.5-50.1) L 11/06/16 06:29 Total Bilirubin 0.2 mg/dL (0.2-1.2) 11/06/16 06:29 AST 15 Units/L (5-34) 11/06/16 06:29 ALT 12 Units/L (0-55) 11/06/16 06:29 Carcinoembryonic Ag 2.8 ng/mL (0-5.0) 11/05/16 05:58 - Impressions Impressions Chest CT 11/05/16 13:30 IMPRESSION: Spiculated mass-like opacities to the left lower lobe, correlating with findings on recent CT abdomen and pelvis and chest x-ray. Findings appear to be new since prior chest x-rays 09/09/2016 and given rapidity of development may reflect infectious/inflammatory process, but neoplastic process cannot entirely be excluded and continued close follow-up is recommended to document resolution after appropriate treatment. There is also a loculated left pleural effusion with somewhat thickened rim concerning for empyema. Atherosclerosis to include coronary artery disease. Mild emphysema. D/ / 11/05/2016 14:55:27 Mykel Weeks MD / lulu Interpreting Provider: Mykel Weeks MD Needle Aspiration CT 11/06/16 00:00 IMPRESSION: Successful CT guided aspiration of a small loculated pleural effusion at the left lung base. The fluid did not appear overtly infected, therefore, no drainage catheter was left in place. D/ / Kvng Ramirez MD / Kvng Ramirez MD Interpreting Provider: Kvng Ramirez MD Chest X-Ray 11/06/16 12:03 IMPRESSION: No left pneumothorax status post left-sided CT-guided thoracentesis/aspiration procedure earlier today. D/ / 11/06/2016 12:45:51 Mykel Weeks MD / [email or web address] Interpreting Provider: Mykel Weeks MD - Attending Attestation I examined this patient and my medical decision-making was reviewed with the MUTUEL CASHIER/PA/Advanced Practice Nurse/Resident Physician. I agree with the documented findings, disposition and treatment plan as described except to the extent set forth below.
[2016-11-06] MEDS: CarBAMazepine XR (12 hr) 100 MG TAB PO SCH ×2 (08:35→20:23)
[2016-11-06] MEDS: Aspirin Enteric Coated 81 MG Tablet PO SCH (08:35)
[2016-11-06] MEDS: *HR* Heparin 5,000 UNIT/ML VIAL SQ SCH ×2 (08:51→20:22)
--- NOTE | 2016-11-06 10:00 | Electrocardiograph Report ---
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
--- NOTE | 2016-11-06 10:02 | Electrocardiograph Report ---
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
[2016-11-06 11:58] LABS: % Iron Saturation 36 % (20-55); Iron 60 mcg/dL (65-175); Transferrin 120 mg/dL (174-364)
--- NOTE | 2016-11-06 12:04 | IR Procedure Note ---
Date of procedure: 11/06/16 Consent Obtained: Verbal consent, Written consent Timeout: Correct patient and procedure verified, Correct site verified, Time out performed, Skin prep completed Local anesthetic: Lidocaine 1% Indications: Left pleural effusion Procedure Performed: Left thoracentesis Site/Technique: Left thoracentesis performed using CT guidance Results/Findings: 20 cc serous pleural fluid aspirated Estimated blood loss (cc): 1 Complications: None; Tolerated procedure well Post Procedure Treatment Plan: Continue inpatient care
[2016-11-06] MEDS ORDERED: *HR* Midazolam HCl 5 MG/5 ML VIAL IVP PRN (12:48)
[2016-11-06] MEDS ORDERED: *HR* FentaNYL (PF) 100 MCG/2 ML VIAL IVP PRN (12:48)
[2016-11-06] MEDS ORDERED: Simethicone 40 MG/0.6 ML MLS IR ONE (12:48)
[2016-11-06] MEDS ORDERED: *HR* Midazolam HCl 5 MG/5 ML VIAL IVP ONE (12:59)
[2016-11-06] MEDS ORDERED: *HR* FentaNYL (PF) 100 MCG/2 ML VIAL ONE (12:59)
[2016-11-06] MEDS ORDERED: 0.9 % Sodium Chloride 1,000 ML IVC SCH (13:00)
[2016-11-06 13:30] LABS: Glucose,Pleural Fluid 76 mg/dL (No Ref Range); LDH,Pleural Fluid 260 Units/L (No Ref Range)
[2016-11-06 13:32] LABS: Total Protein,Pleural Fluid 3.2 g/dL (No Ref Range)
[2016-11-06 13:38] LABS: Appearance of Pleural Fl Cloudy (Clear)
--- NOTE | 2016-11-06 14:14 | Internal Med Progress Note ---
Date of Encounter: 11/06/16 Time of Encounter: 14:11 - Assessment and plan (1) Colonic mass Current Visit: Yes Status: Acute Assessment and plan: Abdominal CT shows colonic mass versus stool. Status post colonoscopy today which shows cecal fungating mass with partial intestinal obstruction that has been biopsied, likely malignancy. Denies any blood in the stool or melena. CEA is negative. We will consult oncology for further management. (2) Community acquired bacterial pneumonia Current Visit: Yes Status: Acute Assessment and plan: CT chest shows spiculated opacity, mass vs pneumonia along with loculated pleural effusion. will conitnue with levofloxacin for now, IR guided thoracentesis and pleural fluid analysis today. he has no fever or leucocytosis. The colonoscopy showing colonic mass, this may be a lung mets. will follow oncology recommendation. (3) Elevated troponin I level Current Visit: Yes Status: Acute Assessment and plan: Most likely demand ischemia in the setting of possible pneumonia and recent UTI, not a candidate for invasive evaluation as per cardio. He denies any chest pain at this time. Beta josie was added by cardiology and has signed off. (4) Renal calculus, left Current Visit: Yes Status: Acute Assessment and plan: non obstructive stone and no signs of UTI. no further intervention at this time. - Time Spent With Patient 25 - 35 minutes - Subjective Interval history: Patient seen at the bedside, Complains of generalized weakness, reports anorexia and weight loss which is chronic. Has had diarrhea before which has now resolved. Denies any fever or cough or shortness of breath at home. Gives family history of father having possible lung cancer with metastases. s/p colonoscopy today with Dr. MOYER - Constitutional Vitals: Temp Pulse Resp BP Pulse Ox 98.1 F 73 16 105/65 98 11/06/16 07:31 11/06/16 13:46 11/06/16 13:46 11/06/16 13:46 11/06/16 13:46 General appearance: Present: cachectic, A&O X 3, pleasant, no acute distress Exam: General: Conversant, No Apparent Distress HEENT: Atraumatic, Normocephaly, Mucus Membranes Moist Cardiac: Reg Rate and Rhythm, Normal S1 and S2 Lungs: Other (lung sounds diminished throughout. ) Neuro: Alert and responsive Abdomen: soft, non tender, no organomegaly, bs are present Skin: No rashes noted on visualized skin Musculoskeletal: No Chest Wall Tenderness Extremities: No Clubbing, No Cyanosis, No Edema, Normal Pulses Internal Medicine: Result - Labs CBC & Chem 7: 11/06/16 06:29 11/06/16 06:29 Labs: Short CBC 11/06/16 Range/Units 06:29 WBC 8.2 (4.3-11.1) K/mcL Hgb 11.1 L (12.9-16.9) g/dL Hct 35.1 L (37.5-50.1) % Plt Count 405 H (140-400) K/mcL Neutrophils # 5.4 (1.6-8.9) K/mcL BMP 11/06/16 06:29 Sodium 134 L Potassium 4.0 Chloride 104 Carbon Dioxide 22 BUN 5 L Creatinine 0.52 L Glucose 92 Calcium 8.5 L Liver Function 11/06/16 Range/Units 06:29 Total Bilirubin 0.2 (0.2-1.2) mg/dL Direct Bilirubin 0.1 (0.0-0.5) mg/dL AST 15 (5-34) Units/L ALT 12 (0-55) Units/L Alkaline Phosphatase 139 H (38-126) Units/L Albumin 1.9 L (3.5-5.0) g/dL - Impressions Impressions Chest CT 11/05/16 13:30 IMPRESSION: Spiculated mass-like opacities to the left lower lobe, correlating with findings on recent CT abdomen and pelvis and chest x-ray. Findings appear to be new since prior chest x-rays 09/09/2016 and given rapidity of development may reflect infectious/inflammatory process, but neoplastic process cannot entirely be excluded and continued close follow-up is recommended to document resolution after appropriate treatment. There is also a loculated left pleural effusion with somewhat thickened rim concerning for empyema. Atherosclerosis to include coronary artery disease. Mild emphysema. D/ / 11/05/2016 14:55:27 Mykel Weeks MD / lulu Interpreting Provider: Mykel Weeks MD Needle Aspiration CT 11/06/16 00:00 IMPRESSION: Successful CT guided aspiration of a small loculated pleural effusion at the left lung base. The fluid did not appear overtly infected, therefore, no drainage catheter was left in place. D/ / Kvng Ramirez MD / Kvng Ramirez MD Interpreting Provider: Kvng Ramirez MD Chest X-Ray 11/06/16 12:03 IMPRESSION: No left pneumothorax status post left-sided CT-guided thoracentesis/aspiration procedure earlier today. D/ / 11/06/2016 12:45:51 Mykel Weeks MD / [email or web address] Interpreting Provider: Mykel Weeks MD Consult Discharge Plan - Plan Referrals: Jose Rodriguez MD [Primary Care Provider] - 11/11/16 9:45 am (Web request.....)
[2016-11-06] MEDS: Levofloxacin 750 MG/150 ML 750 MG/150 ML BAG IVPB SCH (20:23)
[2016-11-06] MEDS: *HR* OxyCODONE/APAP 10/325 TABLET PO PRN (20:33)
[2016-11-07] MEDS: Albuterol 2.5 MG/3 ML NEBULIZER IH PRN (03:38)
[2016-11-07] MEDS: *HR* OxyCODONE/APAP 10/325 TABLET PO PRN ×3 (04:38→22:36)
[2016-11-07] MEDS: Baclofen 10 MG TABLET PO PRN ×2 (04:53→22:36)
[2016-11-07] MEDS: *HR* Heparin 5,000 UNIT/ML VIAL SQ SCH ×2 (08:38→22:38)
[2016-11-07] MEDS: CarBAMazepine XR (12 hr) 100 MG TAB PO SCH ×2 (08:39→22:17)
[2016-11-07] MEDS: Aspirin Enteric Coated 81 MG Tablet PO SCH (08:39)
[2016-11-07] MEDS ORDERED: THEOPHYLLINE ANHYDROUS 200 MG PO SCH (09:00)
[2016-11-07 09:07] LABS: Basophils % 0.6 %; Eosinophils # 0.2 K/mcL (0.0-0.6); Eosinophils % 2.7 %; Hematocrit 31.6 % (37.5-50.1); Hemoglobin 10.2 g/dL (12.9-16.9); Immature Granulocytes % 0.2 % (0-4); Lymphocytes # 1.9 K/mcL (0.6-4.6); Lymphocytes % 29.9 %; Mean Corpuscular HGB Conc 32.3 g/dL (31.6-35.5); Mean Corpuscular Hemoglobin 30.8 pg (28.0-33.3); Mean Corpuscular Volume 95.5 fL (83.0-100.0); Mean Platelet Volume 8.4 fL (9.4-12.4); Monocytes # 0.5 K/mcL (0.0-1.3); Monocytes % 7.8 %; Neutrophils # 3.7 K/mcL (1.6-8.9); Platelet Count 378 K/mcL (140-400); Red Blood Count 3.31 M/mcL (4.19-5.50); Red Cell Distribution Width 14.2 % (11.5-14.5); Segmented Neutrophils % 58.8 %
[2016-11-07 09:16] LABS: BUN/Creatinine Ratio 13 (6-26); Blood Urea Nitrogen 7 mg/dL (8-26); Calcium 8.6 mg/dL (8.6-10.8); Carbon Dioxide 20 mEq/L (19-29); Chloride 108 mEq/L (98-109); Glucose 95 mg/dL (70-99); Osmolality,Calculated 280 (280-300); Potassium 3.9 mEq/L (3.5-4.5); Sodium 136 mEq/L (136-145); eGFR For African Americans > 60 (> 60); eGFR For Non-African Americans > 60 (> 60)
--- NOTE | 2016-11-07 10:10 | Oncology Inp Consult Note ---
Date of Encounter: 11/07/16 Time of Encounter: 09:00 Assessment and Plan (1) Colonic mass Status: Acute Assessment and plan: Should with rectosigmoid mass circumferentially fungating partially obstructing status post colonoscopy by Dr. Elizabeth with possible postinflammatory/infectious patchy infiltrates in the left lung. Status post thoracentesis fluid cytology pending, he currently does not have any symptoms of pneumonia, is ex smoker. Pet imaging possibly as outpatient after reviewing fluid analysis results. CEA is low at around 2. Nutrition consultation. Pain under control with percocet. Follow-up on final cytology report from colonoscopy biopsy, we discussed colonoscopy and imaging findings with the patient in detail and possible treatment options if this would be malignancy. We will review pathology and treatment options in the multidisciplinary tumor board conference once available. - Data of Consult Requesting Physician: Moses Jefferson Primary Care Provider: Jose Rodriguez MD - Consult Narrative Reason for consult: colon mass History of present illness: Mr. Ruiz is a 61 year old male with medical history significant for asthma , history of intermediate with residual weakness and contracture, history of seizures, with a recent history of UTI, patient noticed dark urine and some abdominal discomfort thought that his UTI was coming back patient also had generalized weakness worsened recently and weight loss patient had undergone a CT scan of the abdomen and pelvis that showed a masslike consolidation in the left lung base measuring 4.7 cm loculated left pleural effusion, mass in the rectosigmoid area in the colon compression deformities in T4, T7. He reports diarrhea symptoms denies any gross GI bleeding. He lives by himself and ambulate with the help of wheelchair. He is visited by home health nurse. Family history of cancers. Patient denies any abdominal pain currently. He denies any chest pain he has not had any cough or congestion symptoms lately. He underwent a colonoscopy on 11/06/2016 that showed a malignant partially obstructing tumor in the mid rectum biopsies were obtained which are pending. Patient also underwent an ultrasound-guided thoracentesis of the left sided loculated fluid collection that was cloudy in appearance, lymphs, LDH 260 serum not available Had smoked for several years lately not smoking as he does not have the desire to smoke. Past Med Surg Social Fam HX - Past Medical History Medical history: asthma, CVA, seizures Psychiatric history: no psych history - Social History Smoking Status: Current every day smoker Smokeless Tobacco Status: No Alcohol use: heavy Drug use: marijuana - Family History Father Living Status: Cause of : Cancer Hx Family Cardiac Disorders: No Hx Family Respiratory Disorders: Yes Hx Family Cancer: Yes Hx Family GI Disorders: No Hx Family Genitourinary Disorders: No Hx Family Endocrine Disorder: No Hx Family Neuromuscular Disorders: No Hx Family Neurologic Disorders: No Hx Family HEENT Disorders: No Hx Family Autoimmune Disorders: No Hx Family Reproductive Disorders: No Hx Family Psychosocial Disorders: No Hx Family Medical Disorders: Yes Medications and Allergies Albuterol Neb [Proventil Neb] 2.5 mg IH Q4HR 09/09/16 [History] Albuterol Sulfate [Ventolin Hfa] 1 puff IH QID PRN 09/09/16 [History] Baclofen [Baclofen] 20 mg PO TID PRN 09/09/16 [History] CarBAMazepine [Tegretol Xr] 400 mg PO BID 09/09/16 [History] Diazepam [Valium] 10 mg PO TID 09/09/16 [History] Diclofenac Sodium [Voltaren] 1 gm TP TID 09/09/16 [History] Docusate [Colace] 100 mg PO BID 09/09/16 [History] Ipratropium/Albuterol Neb [Duoneb] 3 ml IH TID PRN 09/09/16 [History] Lactose-Reduced Food [Ensure Liquid] 1 bottle PO TID 09/09/16 [History] OxyCODONE/APAP 10/325 [Percocet 10/325 MG] 1 tab PO Q6HR PRN 09/09/16 [History] Theophylline Anhydrous [Martin-24] 200 mg PO DAILY 09/09/16 [History] Zonisamide [Zonegran] 200 mg PO BID 09/09/16 [History] Allergies No Known Allergies Allergy (Unverified 11/04/16 15:06) Review of systems: as in HPI Oncology - Exam - Constitutional Vitals: Temp Pulse Resp BP Pulse Ox 98.3 F 59 16 98/63 98 11/07/16 06:59 11/07/16 06:59 11/07/16 06:59 11/07/16 06:59 11/07/16 06:59 General appearance: thin - Head Head exam: Present: atraumatic - Eye Eye exam: Present: sclera anicteric - ENT ENT exam: Present: mucous membranes dry - Neck Additional comments: no supraclav or neck adenopathy - Respiratory Additional comments: Bilateral air entry, no wheeze - Cardiovascular Cardiovascular exam: Present: +S1 - GI/Abdominal GI/Abdominal exam: Present: soft Additional comments: non tender, no masses palpable no organomegaly - Extremities Exam Additional comments: no lower ext edema - Neurological Exam Neurological exam: Present: alert, oriented X3 Additional comments: contracture deformoties in hands and ext Oncology - Results - Labs Labs: Short CBC 11/07/16 Range/Units 08:31 WBC 6.3 (4.3-11.1) K/mcL Hgb 10.2 L (12.9-16.9) g/dL Hct 31.6 L (37.5-50.1) % Plt Count 378 (140-400) K/mcL Neutrophils # 3.7 (1.6-8.9) K/mcL BMP 11/07/16 08:31 Sodium 136 Potassium 3.9 Chloride 108 Carbon Dioxide 20 BUN 7 L Creatinine 0.55 L Glucose 95 Calcium 8.6 - Imaging and Cardiology CT scan - chest Status: image reviewed by me CT scan - abdomen Status: image reviewed by me Consult Discharge Plan - Plan Referrals: Jose Rodriguez MD [Primary Care Provider] - 11/11/16 9:45 am (Web request.....)
--- NOTE | 2016-11-07 15:17 | Internal Med Progress Note ---
Date of Encounter: 11/07/16 Time of Encounter: 15:16 - Assessment and plan (1) Colonic mass Current Visit: Yes Status: Acute Assessment and plan: Status post colonoscopy which shows cecal fungating mass with partial intestinal obstruction that has been biopsied, likely malignancy. Denies any blood in the stool or melena. CEA is negative. seen by oncology, await biopsy results, will possible f/u OP for further management. (2) Community acquired bacterial pneumonia Current Visit: Yes Status: Acute Assessment and plan: CT chest shows spiculated opacity, mass vs pneumonia along with loculated pleural effusion. will conitnue with levofloxacin for now, IR guided thoracentesis and pleural fluid analysis , appears exudative he has no fever or leucocytosis. The colonoscopy showing colonic mass, this may be lung mets. will follow oncology recommendation. (3) Elevated troponin I level Current Visit: Yes Status: Acute Assessment and plan: Most likely demand ischemia in the setting of possible pneumonia and recent UTI, not a candidate for invasive evaluation as per cardio. He denies any chest pain at this time. Beta josie was added by cardiology and has signed off. (4) Renal calculus, left Current Visit: Yes Status: Acute Assessment and plan: non obstructive stone and no signs of UTI. no further intervention at this time. - Time Spent With Patient 25 - 35 minutes - Subjective Interval history: Patient seen at the bedside, Complains of generalized weakness, reports anorexia and weight loss which is chronic. Has had diarrhea before which has now resolved. Denies any fever or cough or shortness of breath at home. Gives family history of father having possible lung cancer with metastases. s/p colonoscopy with Dr. MOYER, has cecal mass most likely malignant. - Constitutional Vitals: Temp Pulse Resp BP Pulse Ox 97.7 F 55 16 104/61 98 11/07/16 10:38 11/07/16 10:38 11/07/16 10:38 11/07/16 10:38 11/07/16 10:38 General appearance: Present: cachectic, A&O X 3, pleasant, no acute distress Exam: HEENT: Atraumatic, Normocephaly, Mucus Membranes Moist Cardiac: Reg Rate and Rhythm, Normal S1 and S2 Lungs: Other (lung sounds diminished throughout. ) Neuro: Alert and responsive Abdomen: soft, non tender, no organomegaly, bs are present Skin: No rashes noted on visualized skin Musculoskeletal: No Chest Wall Tenderness Extremities: No Clubbing, No Cyanosis, No Edema, Normal Pulses Internal Medicine: Result - Labs CBC & Chem 7: 11/07/16 08:31 11/07/16 08:31 Labs: Short CBC 11/07/16 Range/Units 08:31 WBC 6.3 (4.3-11.1) K/mcL Hgb 10.2 L (12.9-16.9) g/dL Hct 31.6 L (37.5-50.1) % Plt Count 378 (140-400) K/mcL Neutrophils # 3.7 (1.6-8.9) K/mcL BMP 11/07/16 08:31 Sodium 136 Potassium 3.9 Chloride 108 Carbon Dioxide 20 BUN 7 L Creatinine 0.55 L Glucose 95 Calcium 8.6 - VTE Documentation of Mechanical Device: Intermittent pneumatic compression device Consult Discharge Plan - Plan Referrals: Jose Rodriguez MD [Primary Care Provider] - 11/11/16 9:45 am (Web request.....)
[2016-11-07] MEDS: Levofloxacin 750 MG/150 ML 750 MG/150 ML BAG IVPB SCH (22:27)
[2016-11-08 05:11] LABS: BUN/Creatinine Ratio 12 (6-26); Blood Urea Nitrogen 7 mg/dL (8-26); Calcium 8.5 mg/dL (8.6-10.8); Carbon Dioxide 19 mEq/L (19-29); Chloride 106 mEq/L (98-109); Glucose 136 mg/dL (70-99); Osmolality,Calculated 278 (280-300); Potassium 3.9 mEq/L (3.5-4.5); Sodium 134 mEq/L (136-145); eGFR For African Americans > 60 (> 60); eGFR For Non-African Americans > 60 (> 60)
[2016-11-08 05:17] LABS: Basophils % 0.3 %; Eosinophils # 0.3 K/mcL (0.0-0.6); Eosinophils % 4.1 %; Hematocrit 34.9 % (37.5-50.1); Hemoglobin 11.2 g/dL (12.9-16.9); Immature Granulocytes % 0.4 % (0-4); Lymphocytes # 2.2 K/mcL (0.6-4.6); Lymphocytes % 28.7 %; Mean Corpuscular HGB Conc 32.1 g/dL (31.6-35.5); Mean Corpuscular Hemoglobin 30.6 pg (28.0-33.3); Mean Corpuscular Volume 95.4 fL (83.0-100.0); Mean Platelet Volume 8.8 fL (9.4-12.4); Monocytes # 0.6 K/mcL (0.0-1.3); Monocytes % 7.8 %; Neutrophils # 4.5 K/mcL (1.6-8.9); Platelet Count 390 K/mcL (140-400); Red Blood Count 3.66 M/mcL (4.19-5.50); Red Cell Distribution Width 14.3 % (11.5-14.5); Segmented Neutrophils % 58.7 %
[2016-11-08] MEDS: 0.9 % Sodium Chloride 1,000 ML IVC SCH ×2 (06:30→18:12)
[2016-11-08] MEDS: *HR* OxyCODONE/APAP 10/325 TABLET PO PRN ×3 (06:38→18:18)
[2016-11-08] MEDS: *HR* Heparin 5,000 UNIT/ML VIAL SQ SCH ×2 (10:34→18:19)
[2016-11-08] MEDS: Aspirin Enteric Coated 81 MG Tablet PO SCH (10:34)
[2016-11-08] MEDS: CarBAMazepine XR (12 hr) 100 MG TAB PO SCH ×2 (10:34→23:00)
--- NOTE | 2016-11-08 14:20 | Discharge Summary ---
Date of Encounter: 11/08/16 Time of Encounter: 14:14 - Discharge Diagnosis (1) Colonic mass Priority: Primary Status: Acute (2) Community acquired bacterial pneumonia Priority: Primary Status: Acute (3) Elevated troponin I level Priority: Secondary Status: Acute (4) Renal calculus, left Priority: Secondary Status: Acute - Discharge Medications Prescriptions: OxyCODONE/APAP 10/325 [Percocet 10/325 MG] 1 tab PO Q6HR PRN #30 tablet PRN Reason: Pain Aspirin Enteric Coated [Aspirin EC] 81 mg PO DAILY #30 tablet. Atorvastatin [Lipitor] 10 mg PO HS #30 tablet Levofloxacin 750 mg PO 2100 #3 tablet Metoprolol [Lopressor] 12.5 mg PO BID #60 tablet Home Medications: Albuterol Neb [Proventil Neb] 2.5 mg IH Q4HR 09/09/16 [History] Albuterol Sulfate [Ventolin Hfa] 1 puff IH QID PRN 09/09/16 [History] Baclofen 20 mg PO TID PRN 09/09/16 [History] CarBAMazepine [Tegretol Xr] 400 mg PO BID 09/09/16 [History] Diazepam [Valium] 10 mg PO TID 09/09/16 [History] Diclofenac Sodium [Voltaren] 1 gm TP TID 09/09/16 [History] Docusate [Colace] 100 mg PO BID 09/09/16 [History] Ipratropium/Albuterol Neb [Duoneb] 3 ml IH TID PRN 09/09/16 [History] Lactose-Reduced Food [Ensure Liquid] 1 bottle PO TID 09/09/16 [History] Theophylline Anhydrous [Martin-24] 200 mg PO DAILY 09/09/16 [History] Zonisamide [Zonegran] 200 mg PO BID 09/09/16 [History] Aspirin Enteric Coated [Aspirin EC] 81 mg PO DAILY #30 tablet. 11/08/16 [Rx] Atorvastatin [Lipitor] 10 mg PO HS #30 tablet 11/08/16 [Rx] Levofloxacin 750 mg PO 2100 #3 tablet 11/08/16 [Rx] Metoprolol [Lopressor] 12.5 mg PO BID #60 tablet 11/08/16 [Rx] OxyCODONE/APAP 10/325 [Percocet 10/325 MG] 1 tab PO Q6HR PRN #30 tablet [Rx] Allergies/Adverse Reactions: Allergies No Known Allergies Allergy (Unverified 11/04/16 15:06) Procedures/tests Complete & Pending: Procedures Performed prior 72 hours Category Date Time Status CT chest wo con [CT] Routine Cat Scan 11/05/16 13:[address] guided aspiration [CT] Routine Cat Scan 11/06/16 Completed Date of admission: 11/04/16 23:50 Primary care physician: Jose Rodriguez MD Consults: 11/05/16 17:49 Consult to Interventional Radiology [CONS] Routine Consulting Provider: Radiology Interventional Cols Reason for Consult: please evaluate for thoracentesis of the loculated left pleural effusion. thank you. Call Completed: No 11/05/16 17:50 Consult to Gastroenterology [CONS] Routine Consulting Provider: Gastroenterdorian Guido Reason for Consult: please evlauate this patient with colon mass(sigmoid colon vs stool) with h/o wt. loss and anorexia and generalized weakness for possible colonoscopy. thank you Call Completed: No 11/06/16 08:39 Consult to Corporate Sales Manager [CONS] Routine Reason for SW Consult: therapy rec ecf 11/06/16 14:06 Consult to Oncology Hematology [CONS] Routine Consulting Provider: Rikki Hardin Jr Reason for Consult: please evaluate for a newly diagnosed cecal fungating mass for further management, s/p colonoscopy and biopsy today. thank you. Call Completed: Yes 11/07/16 10:20 Consult to Nutrition [CONS] Routine Comment: Consulting Provider: NUTRITION Reason for Dietary Consult: Supplemental Nutrition Discharging clinician: Moses Jefferson Anticipated date of discharge: 11/08/16 - Patient Status Disposition: Home Health Service Condition: Fair Functional capacity at discharge: uses cane/walker Overall status at discharge: patient is progressing back to baseline - Discharge Instructions Instructions: Metoprolol (By mouth), Oxycodone/Acetaminophen (By mouth), Aspirin (By mouth), Levofloxacin (By mouth), Pneumonia (DC) Follow Up With: Jose Rodriguez MD [Primary Care Provider] - 11/11/16 9:45 am (Web request.....) Rafat Peres MD [Partnered Physician] - (f/u in 1 week for colonic mass. ) - Diet and Activity Activity: as per physical therapy, resume usual activities as tolerated Diet: advance to your usual diet Interval History: Mr. Ruiz is a 61 year old male with history of left sided any pleasing ambulates with a cane, history of asthma since childhood was a lifelong smoker presents to the emergency room today with the main complain of dark urine and left flank pain. Patient has been losing weight. He thinks over the past 2 to 3 months he may have lost about 25 to 30 pounds. He is also getting weaker and his functional capacities declining. He denies any increase in cough or sputum production compared to his baseline. He denies any fevers chills. Denies any change in the color of his stools or eye. He denies any chest pain. Has been a lifelong smoker about 50 pack year does not have an appetite is currently. Occasional alcohol. Father of cancer . He was admitted for further evaluation. Abdominal CAT scan was done which revealed cecal mass versus stool. Chest x-ray also shows spiculated opacity, pneumonia versus mass. He was started on empirically on IV antibiotics for possible pneumonia. She was consulted for possible colonic mass, he underwent colonoscopy which showed definite cecal mass causing partial obstruction of the colon. The mass was biopsied. Oncology was consulted for further management. recommend by oncology to follow up as outpatient,plan for PET scan, await biopsy results. This was discussed with the patient and patient agreed to follow-up as outpatient for further management. He does have home health,needs to be reactivated. He is being discharged today in stable condition. Hospital course: Mr. Ruiz is a 61 year old male Time spent discussing smoking cessation with patient: more than 10 minutes - Time Spent with Patient Total time spent providing and/or coordinating discharge services: Greater than 30 minutes - Constitutional Vitals: Temp Pulse Resp BP Pulse Ox 98.2 F 67 17 113/63 97 11/08/16 12:16 11/08/16 12:16 11/08/16 12:16 11/08/16 12:16 11/08/16 12:16 General appearance: Present: cachectic, A&O X 3, pleasant, no acute distress Exam: cardiac: normal S1 S2 no additional sounds or murmurs chest: diminished air entry in the left base abdomen: soft nontender nondistended normal bowel sounds lower extremity: Lax calf muscles no swelling - VTE Documentation of Mechanical Device: Intermittent pneumatic compression device
--- NOTE | 2016-11-08 14:25 | Physician Discharge Referral ---
Home Health/Hosp Referral Info Transfer to: Home Health Attending Provider: juan solomon - Diagnosis (1) Colonic mass Status: Acute (2) Community acquired bacterial pneumonia Status: Acute (3) Elevated troponin I level Status: Acute (4) Renal calculus, left Status: Acute - Respiratory Orders Smoking Cessation: Smoking cessation has been advised. For more information, call the [employer] Tobacco Quit Line at 9-433-HSAD-NOW. - Diet/Nutrition Diet/Nutrition Orders: Regular - Activity Activity Orders: Chair, Walker - Services Needed Following services are medically necessary services: Nursing, Home Health Aide - Transfer Medications Prescriptions: OxyCODONE/APAP 10/325 [Percocet 10/325 MG] 1 tab PO Q6HR PRN #30 tablet PRN Reason: Pain Aspirin Enteric Coated [Aspirin EC] 81 mg PO DAILY #30 tablet. Atorvastatin [Lipitor] 10 mg PO HS #30 tablet Levofloxacin 750 mg PO 2100 #3 tablet Metoprolol [Lopressor] 12.5 mg PO BID #60 tablet Home Medications: Albuterol Neb [Proventil Neb] 2.5 mg IH Q4HR 09/09/16 [History] Albuterol Sulfate [Ventolin Hfa] 1 puff IH QID PRN 09/09/16 [History] Baclofen 20 mg PO TID PRN 09/09/16 [History] CarBAMazepine [Tegretol Xr] 400 mg PO BID 09/09/16 [History] Diazepam [Valium] 10 mg PO TID 09/09/16 [History] Diclofenac Sodium [Voltaren] 1 gm TP TID 09/09/16 [History] Docusate [Colace] 100 mg PO BID 09/09/16 [History] Ipratropium/Albuterol Neb [Duoneb] 3 ml IH TID PRN 09/09/16 [History] Lactose-Reduced Food [Ensure Liquid] 1 bottle PO TID 09/09/16 [History] Theophylline Anhydrous [Martin-24] 200 mg PO DAILY 09/09/16 [History] Zonisamide [Zonegran] 200 mg PO BID 09/09/16 [History] Aspirin Enteric Coated [Aspirin EC] 81 mg PO DAILY #30 tablet. 11/08/16 [Rx] Atorvastatin [Lipitor] 10 mg PO HS #30 tablet 11/08/16 [Rx] Levofloxacin 750 mg PO 2100 #3 tablet 11/08/16 [Rx] Metoprolol [Lopressor] 12.5 mg PO BID #60 tablet 11/08/16 [Rx] OxyCODONE/APAP 10/325 [Percocet 10/325 MG] 1 tab PO Q6HR PRN #30 tablet [Rx] Allergies/Adverse Reactions: Allergies No Known Allergies Allergy (Unverified 11/04/16 15:06) Certification: Further, I certify that my clinical findings support that this patient is homebound (i.e. absences from home require considerable and taxing effort and are for medical reasons or protestant services or infrequently or short duration when for other reasons) because: Homebound Reason: Patient requires assistance of a person or device to safely leave home Attestation: My signature below is to certify that this patient is under my care and that I, or nurse practitioner, or a physician's assistant operator working with me, has a face-to -face encounter with this patient.
[2016-11-08] MEDS: Albuterol 2.5 MG/3 ML NEBULIZER IH PRN (15:33)
[2016-11-08] MEDS ORDERED: levoFLOXacin 750 MG TABLET PO SCH (21:00)
[2016-11-09] MEDS: Aspirin Enteric Coated 81 MG Tablet PO SCH (08:01)
[2016-11-09] MEDS: CarBAMazepine XR (12 hr) 100 MG TAB PO SCH (08:02)
[2016-11-09] MEDS: *HR* Heparin 5,000 UNIT/ML VIAL SQ SCH (08:06)
[2016-11-09] MEDS: *HR* OxyCODONE/APAP 10/325 TABLET PO PRN (08:06)
[2016-11-09 08:09] LABS: CK Total (Ck Isoenzymes) 14 U/L (20-200)
[2016-11-09] MEDS: Albuterol 2.5 MG/3 ML NEBULIZER IH PRN (10:40)
[2016-11-09 11:39] VITALS: BP 87/58
--- NOTE | 2016-11-23 08:08 | Event Note ---
Date of Encounter: 11/09/16 Time of Encounter: 08:06 patient was discharged on 11/08/16 however he did not leave as it was late and the HH would not be able to come that day.hence, he is being discharged on this date with the HH arranged.
== END 2016-11-09 17:00 | disposition home health service (06) | DRG 393 ==
LOC: 2ANU 14:56 → EMEROO 14:56 → 2ANU 23:17
PROVIDERS: ADMIT Internal Medicine Endocrinology, Diabetes & Metabolism; ATTEND Internal Medicine Endocrinology, Diabetes & Metabolism